=== PATIENT | female | born 1940 | race Caucasian/White ===

== ENCOUNTER 2023-02-06 14:50 | Inpatient (IN) | payer MEDICARE, BC ==
[~2023-02-06 14:50] MED LIST: Iopamidol-370 76% 500 ML MDV (1 ML CHARGE) ONE
[2023-02-06] MEDS ORDERED: Pantoprazole 40 MG VIAL ONE (14:56)
[2023-02-06] MEDS ORDERED: Promethazine HCl 25 MG in Sodium Chloride 0.9% 50 ML IVPB SCH (15:30)
[2023-02-06] MEDS ORDERED: Sodium Chloride 0.9% 100 ML ONE (15:56)
[2023-02-06] MEDS ORDERED: cefTRIAXone (ROCEPHIN) 2 GM VIAL ONE (15:56)
[2023-02-06 16:16] LABS: Hematocrit 32.4 % (36.0-47.0); Hemoglobin 10.2 g/dL (12.0-16.0); Mean Corpuscular HGB CONC 31.5 g/dL (32.0-36.0); Mean Corpuscular Hemoglobin 29.5 pg (27.0-31.0); Mean Corpuscular Volume 93.6 fl (78.0-98.0); Mean Platelet Volume 10.2 fL (7.4-10.4); Platelet Count 198 10x3/uL (130-400); RBC Distribution Width 14.1 % (11.5-14.5); Red Blood Cell (RBC) Count 3.46 mill/uL (4.20-5.40); White Blood Cell (WBC) Count 22.3 10x3/uL (4.8-10.8)
[2023-02-06 16:17] LABS: Delete Auto Diff?? YES; Manual Diff?? YES
[2023-02-06 16:40] LABS: ALT (SGPT) 43 U/L (8-55); AST (SGOT) 58 U/L (5-34); Albumin 1.9 g/dL (3.4-4.8); Alkaline Phosphatase 98 U/L (40-110); Anion Gap 20 mmol/L (10-20); BUN (Urea Nitrogen) 30 mg/dL (9.8-20.1); Bilirubin, Total 0.7 mg/dL (0.2-1.2); Calc. Creatinine Clearance 0 mL/min (70-130); Carbon Dioxide 13 mmol/L (23-31); Chloride 100 mmol/L (98-107); Estimated GFR 67; Glucose 167 mg/dL (83-110); Lipase 10 U/L (8-78); Magnesium 1.5 mg/dL (1.6-2.6); Potassium 3.6 mmol/L (3.5-5.1); Protein, Total 4.9 g/dL (5.8-8.1); Sodium 129 mmol/L (136-145)
[2023-02-06 16:41] LABS: Band 17 % (5-11); Burr Cells SLIGHT = 2-5 cells HPF (0-1); CellaVision Operator ID LAB.MJL; Lymphocytes 2 % (21-51); Monocytes 4 % (0-10); Neutrophil 76 % (42-75); Ovalocytes SLIGHT = 2-5 cells HPF (0-1); Platelet Adequacy Comment Platelets Normal; Poikilocytosis SLIGHT = 6-15 cells HPF (0-5); Polychromasia SLIGHT = 2-3 cells HPF (0-2); Reactive Lymphocytes 1 % (0-10); Total Cell Count 101
[2023-02-06 16:44] LABS: Calcium 6.8 mg/dL (7.8-10.44)
[2023-02-06] MEDS ORDERED: fentaNYL 50 mcg/mL 1 mL Vial ONE (16:44)
[2023-02-06] MEDS ORDERED: CALCIUM GLUC 1 GM/NS 50 ML BAG ONE ×2 (16:45→17:17)
[2023-02-06] MEDS ORDERED: Magnesium 2 GM/50 ML BAG (IN WATER) ONE (16:50)
[2023-02-06] MEDS ORDERED: Tranexamic Acid 1,000 MG/10 ML VIAL ONE (16:50)
[2023-02-06] MEDS ORDERED: EPINEPHrine 1 MG/ML VIAL ONE (17:22)
[2023-02-06] MEDS ORDERED: EPINEPHrine 1 MG/10 ML Abboject SYRINGE ONE (17:34)
[2023-02-06] MEDS ORDERED: LORazepam 2 MG/ML SYR.(CARPUJECT) ONE (18:17)
[2023-02-06] MEDS ORDERED: Acetaminophen 650 MG Suppository PR PRN (20:37)
[2023-02-06] MEDS ORDERED: Ondansetron ODT 4 MG TAB PO PRN (20:37)
[2023-02-06] MEDS ORDERED: Ondansetron PF 4 MG/2 ML Vial IVP PRN (20:37)
[2023-02-06] MEDS ORDERED: Acetaminophen 325 MG TAB PO PRN (20:37)
[2023-02-06 21:40] VITALS: BMI 24.7
[2023-02-06] MEDS ORDERED: Scopolamine 1 mg/72 hour Patch TOP PRN (22:27)
[2023-02-06] MEDS ORDERED: Sodium Chloride 0.9% 1,000 ML IV SCH (22:30)
[2023-02-06] MEDS ORDERED: Piperacillin/Tazobactam 3.375 GM in Sodium Chloride 0.9% 100 ML IVPB SCH (23:00)
[2023-02-06] MEDS ORDERED: Vancomycin (BATCH) 1.25 GM in Premix 1 BAG IVPB SCH (23:00)
[2023-02-07] MEDS ORDERED: Morphine 2 MG/ML VIAL SLOW IVP PRN ×2 (00:50→03:39)
[2023-02-07 01:10] VITALS: BP 78/50; TEMP 97.4
[2023-02-07] MEDS ORDERED: Sodium Chloride 0.9% 250 ML IV SCH (01:30)
[2023-02-07 01:54] LABS: #Basophils 0.1 thou/uL (0.0-0.2); #Monocytes 1.1 thou/uL (0.11-0.59); #Neutrophils 21.9 thou/uL (1.40-6.50); %Basophils 0.2 % (0.0-1.0); %Lymphocytes 3.5 % (21.0-51.0); %Monocytes 4.5 % (0.0-10.0); %Neutrophils 90.9 % (42.0-75.0); Hematocrit 26.6 % (36.0-47.0); Hemoglobin 9.4 g/dL (12.0-16.0); Mean Corpuscular HGB CONC 35.3 g/dL (32.0-36.0); Mean Corpuscular Hemoglobin 29.3 pg (27.0-31.0); Mean Platelet Volume 10.8 fL (7.4-10.4); Platelet Count 118 10x3/uL (130-400); RBC Distribution Width 15.5 % (11.5-14.5); Red Blood Cell (RBC) Count 3.21 mill/uL (4.20-5.40)
[2023-02-07 01:58] LABS: Mean Corpuscular Volume 82.9 fl (78.0-98.0)
[2023-02-07 02:19] LABS: Anion Gap 21 mmol/L (10-20); BUN (Urea Nitrogen) 35 mg/dL (9.8-20.1); Calc. Creatinine Clearance 42 mL/min (70-130); Calcium 7.6 mg/dL (7.8-10.44); Carbon Dioxide 18 mmol/L (23-31); Chloride 105 mmol/L (98-107); Estimated GFR 56; Glucose 120 mg/dL (83-110); Sodium 141 mmol/L (136-145)
[2023-02-07 02:21] LABS: Lactic Acid 5.9 mmol/L (0.5-2.2)
[2023-02-07 02:26] LABS: Potassium 2.6 mmol/L (3.5-5.1)
[2023-02-07] MEDS ORDERED: Electrolyte Replacement Protocol 1 EACH FS SCH (03:00)
[2023-02-07] MEDS ORDERED: Potassium Chloride 40 MEQ in Premix 1 BAG IVPB SCH (03:00)
[2023-02-07] MEDS ORDERED: NOREPINEPHRINE 8 MG/250 ML-D5W 250 ML IVPB SCH (03:00)
[2023-02-07] MEDS ORDERED: Morphine 4 MG/ML VIAL ONE (03:25)
[2023-02-07] MEDS ORDERED: Lorazepam 2 MG/ML VIAL SLOW IVP PRN (03:38)
[2023-02-07] MEDS ORDERED: Morphine 4 MG/ML VIAL SLOW IVP SCH (03:45)
[2023-02-07] MEDS ORDERED: Piperacillin/Tazobactam 3.375 GM in Sodium Chloride 0.9% 100 ML IVPB SCH (04:00)
[2023-02-07] MEDS ORDERED: Pantoprazole 40 MG VIAL IVP SCH (09:00)
[2023-02-07] MEDS ORDERED: Vancomycin 1 GM in Premix 1 BAG IVPB SCH (21:00)
== END 2023-02-07 04:05 | disposition expired | DRG 871 ==
LOC: ERS 14:50 → MSONC 21:04 → CCU 02-07 03:16
PROVIDERS: ADMIT Student in an Organized Health Care Education/Training Program; ATTEND Student in an Organized Health Care Education/Training Program
PROC: 06HY33Z Insertion of Infusion Device into Lower Vein, Percutaneous Approach (ICD-10-PCS; principal; 2023-02-06)
PROC: 30233K1 Transfusion of Nonautologous Frozen Plasma into Peripheral Vein, Percutaneous Approach (ICD-10-PCS; 2023-02-06)
PROC: 30233N1 Transfusion of Nonautologous Red Blood Cells into Peripheral Vein, Percutaneous Approach (ICD-10-PCS; 2023-02-06)
PROC: 3E033XZ Introduction of Vasopressor into Peripheral Vein, Percutaneous Approach (ICD-10-PCS; 2023-02-06)
PROC: 3E03329 Introduction of Other Anti-infective into Peripheral Vein, Percutaneous Approach (ICD-10-PCS; 2023-02-06)
DX: A41.9 Sepsis, unspecified organism (principal); J96.01 Acute respiratory failure with hypoxia; J98.51 Mediastinitis; R65.21 Severe sepsis with septic shock; K92.0 Hematemesis; E87.20 Acidosis, unspecified; I47.20 Ventricular tachycardia, unspecified; I31.39 Other pericardial effusion (noninflammatory); K22.89 Other specified disease of esophagus; Z66 Do not resuscitate; Z51.5 Encounter for palliative care; E21.3 Hyperparathyroidism, unspecified; R57.8 Other shock; D64.9 Anemia, unspecified; E89.0 Postprocedural hypothyroidism; I65.29 Occlusion and stenosis of unspecified carotid artery; I35.9 Nonrheumatic aortic valve disorder, unspecified; F41.9 Anxiety disorder, unspecified; I25.10 Atherosclerotic heart disease of native coronary artery without angina pectoris; M85.80 Other specified disorders of bone density and structure, unspecified site; I73.9 Peripheral vascular disease, unspecified; E87.6 Hypokalemia; I10 Essential (primary) hypertension; E04.9 Nontoxic goiter, unspecified; Z88.2 Allergy status to sulfonamides; Z79.82 Long term (current) use of aspirin; Z98.890 Other specified postprocedural states; Z79.899 Other long term (current) drug therapy; E66.9 Obesity, unspecified; Z68.24 Body mass index [BMI] 24.0-24.9, adult
CPT/HCPCS: 36415; 36430; 71275; 74174; 80053; 83605; 83690; 83735; 85025; 86850; 86900; 86901; 93005; 94760; C9113; J0171; J0613; J0696; J2060; J2270; J2405; J2543; J2550; J3010; J3370; J3475; J3490; J7030; J7050; P9016; P9048; P9059; Q9967